=== PATIENT | female | born 1970 | race Caucasian/White ===

== ENCOUNTER 2018-10-01 15:43 | Emergency (ER) | payer BC ==
[~2018-10-01] VITALS: Ht 170.2 cm; Wt 78.0 kg
== END 2018-10-01 17:06 | disposition home or self-care (01) ==
LOC: ER 15:43
DX: S90.112A Contusion of left great toe without damage to nail, initial encounter (principal); W18.09XA Striking against other object with subsequent fall, initial encounter; Y93.89 Activity, other specified; Y92.89 Other specified places as the place of occurrence of the external cause; Y99.8 Other external cause status